=== PATIENT | female | born 2000 | race Hispanic/Latino ===

== ENCOUNTER 2019-11-22 14:59 | Emergency (ER) | payer OTHER, SELFPAY ==
--- NOTE | ~2019-11-22 | US_ITS ---
EXAMINATION: US pelvic complete w TV DATE: 11/22/2019 16:18 INDICATION: Pelvic pain, nausea and bleeding Comparison:No prior studies for comparison. TECHNIQUE: Multiple transabdominal and endovaginal sonographic images of the pelvis performed. FINDINGS: The uterus measures 6.2 x 3.5 x 4.5 cm. The endometrial complex measures 5 mm. The right ovary measures 4.2 x 2.1 x 2.9 cm and the left ovary measures 4.5 x 1.8 x 1.9 cm. There ar e small follicles in each ovary. There is no free fluid in the pelvis. There are no abnormal masses seen on either side. IMPRESSION: 1. Normal pelvic ultrasound. Reviewed, dictated and finalized at location A.
[2019-11-22 15:13] VITALS: BP 137/73; PULSE 74; RESP 18; TEMP 36.8; O2SAT 100
--- NOTE | 2019-11-22 15:19 | ED.FEMALEGU ---
HPI - Female Genitourinary General Chief complaint: Vaginal Bleeding Stated complaint: tubal ligation/continued bleeding Time Seen by Provider: 11/22/19 15:05 Source: patient and RN notes reviewed Mode of arrival: ambulatory Limitations: no limitations History of Present Illness HPI Narrative: Pt is a 19 y/o female who presents to the ED with c/o constant vaginal bleeding starting roughly 3 weeks ago. She notes that she received a tubal ligation on 08/14/19 following a complication with a previous . Pt states that she has had intermittent lower ABD pain ever since the procedure. She notes that her pain radiates into her low back, and describes her pain as sharp. Pt states that she had a relatively normal period in August, but notes that she didn't have a period throughout the month of September. She states that she began having heavy vaginal bleeding on 10/29/19, and notes that her bleeding has persisted ever since. Pt states that she has been soaking through 1 pad roughly every 2 hours. She also reports intermittent nausea, diarrhea, and dysuria, but denies any syncope, fever, cough, or congestion. Pt states that she sees REQUIREMENTS MANAGER, Dr. Pina, but notes that she hasn't followed up with him since her tubal ligation. MD elicited complaint: vaginal bleeding Pertinent past history: tubal ligation Onset (ago): week(s) (3) Location of symptoms: vaginal Vaginal bleeding: # pads per hour (.5) Urinary symptoms: Dysuria Associated symptoms: abdominal pain (lower ABD pain radiating into low back), nausea and other (diarrhea) Possible : unsure if Related Data Allergies Allergy/AdvReac Type Severity Reaction Status Date / Time No Known Allergies Allergy Verified 11/22/19 15:16 Review of Systems Review of Systems: Narrative: CONSTITUTIONAL: Denies fever, chills, or sweats. ENT: Denies rhinorrhea, congestion, sore throat, or otalgia. RESPIRATORY: Denies cough or dyspnea. GASTROINTESTINAL: Reports lower abdominal pain radiating into low back, nausea, and diarrhea. GENITOURINARY: Reports vaginal bleeding and dysuria. Denies hematuria. NEUROLOGIC: Denies headache, numbness, weakness, or syncope. All systems reviewed & are unremarkable except as noted in HPI and below PMFSH Past Medical History Medical History (Updated 11/22/19 @ 17:49 by Anamaria Bauer MD) Left otitis media Pre-eclampsia UTI (urinary tract infection) Surgical History Surgical History Hx of tubal ligation Social History Social History Smoking status: Never smoker Alcohol intake: never Substance use: never Gender identity (if verbalized by the patient): Female Exam Narrative: Exam Narrative: GENERAL: Well-appearing, well-nourished, and in no acute distress. HEAD: Normocephalic, atraumatic. EYES: PERRLA and EOMI. ENT: Nares clear, no rhinorrhea or epistaxis. Mucous membranes moist. NECK: Supple. CHEST: Clear to auscultation. No respiratory distress. HEART: Regular rate and rhythm. No murmur heard. Normal peripheral pulses. ABDOMEN: Soft, nondistended, normal active bowel sounds. Mild suprapubic tenderness and rt flank tenderness. PELVIC: Labia majora and minora normal without lesions. Vagina with blood present, no brisk bleeding. No cervical motion tenderness. No large blood clots. No adnexal tenderness or fullness bilaterally. No mucoid discharge present. EXTREMITIES: Normal range of motion. No edema. SKIN: Warm, dry, no rash. NEURO: No focal deficits. Alert and oriented. Course Course Emergency Course: Patient presented for evaluation of vaginal bleeding. Had a time of initial assessment, ABCs are intact and vital signs are stable. No tachycardia or hypotension. Patient with scant bleeding present on vaginal exam without brisk bleeding. No evidence of products of conception. Patient is not . Patient with very stable hemoglobin and hematocr
[2019-11-22] MEDS: SODIUM CHLORIDE 0.9% IV 1,000 ML 999 ML IV CONT (15:47)
[2019-11-22] MEDS: ONDANSETRON INJ 4 MG/2 ML VIAL IV PUSH (15:47)
[2019-11-22 15:58] LABS: Basophils Percent Auto 0.4 % (0.2-1.2); Eosinophils Absolute Auto 0.3 K/mm3 (0-0.3); Eosinophils Percent Auto 2.6 % (0-4.4); Hematocrit 43.3 % (37.0-47.0); Hemoglobin 13.6 g/dL (12.0-15.0); Immature Granulocyte Absolute 0.05 K/mm3 (0.00-0.031); Immature Granulocyte Percent A 0.5 % (0-0.5); Lymphocytes Absolute Auto 3.37 K/mm3 (0.9-3.2); Lymphocytes Percent Auto 30.8 % (18.3-44.2); Mean Corpuscular HGB Conc 31.4 g/dl (32-36); Mean Corpuscular Hemoglobin 28.9 pg (26-34); Mean Corpuscular Volume 92.1 fl (80-100); Mean Platelet Volume 10.5 fl (7.4-10.4); Monocytes Absolute Auto 0.8 K/mm3 (0.1-0.6); Monocytes Percent Auto 6.9 % (2.6-8.5); Neutrophils Absolute Auto 6.4 K/mm3 (1.3-6.7); Neutrophils Percent Auto 58.8 % (45.5-73.1); Platelet Count Result 253 k/mm3 (150-375); Red Cell Distribution Width 13.1 % (11.5-14.5)
[2019-11-22 16:02] LABS: Add Urine Microscopic? YES; Appearance Urine Clear (Clear); Bilirubin Urine Negative (Negative); Blood Urine 3+ (Negative); Color Urine Yellow (Yellow); Glucose Urine UA Negative (Negative); Ketones Urine Negative (Negative); Leukocyte Esterase Ur Negative LEU/UL (Negative); Mucus Urine Rare /lpf; Nitrate Urine Negative (Negative); Protein Urine Negative (Negative); Specific Grav Ur 1.017 (1.001-1.035); Squamous Epithelial Cell Urine Occasional /hpf (Few); Urobilinogen Urine Negative mg/dL (<2.0); WBC Urine 0-3 /hpf
[2019-11-22 16:08] LABS: INR 1.1; Prothrombin Time 13.5 Seconds (11.1-14.7)
[2019-11-22 16:09] LABS: Partial Thromboplastin Time 30.1 SECONDS (22.3-36.8)
[2019-11-22 16:10] LABS: Alanine Aminotransferase 16 U/L (4-35); Albumin Level 4.6 g/dL (3.5-5.1); Alkaline Phosphatase 87 U/L (38-126); Aspartate Amino Transferase 21 U/L (14-36); Bilirubin,Total 0.3 mg/dL (0.2-1.3); Blood Urea Nitrogen 12 mg/dL (7-17); Calcium 8.9 mg/dL (8.4-10.2); Carbon Dioxide 27 mmol/L (22-30); Chloride 104 mmol/L (98-107); Estimated CRCL calculation 97 ml/min; Estimated Glomerular Filt Rate > 60; Glucose 75 mg/dL (65-105); Potassium 3.5 mmol/L (3.4-5.0); Sodium 139 mmol/L (137-145)
[2019-11-22 17:05] VITALS: BP 95/54; PULSE 63; RESP 14; O2SAT 100
[2019-11-22 17:57] VITALS: BP 105/53; PULSE 54; RESP 16; O2SAT 100
== END 2019-11-22 17:58 | disposition home or self-care (01) ==
PROVIDERS: Emergency Provider Emergency Medicine
DX: N92.1 Excessive and frequent menstruation with irregular cycle (principal); Z87.440 Personal history of urinary (tract) infections
CPT/HCPCS: 36415; 76830; 76856; 80053; 81001; 81025; 85025; 85610; 85730; 86900; 86901; 87070; 87491; 87591; 87808; 96365; 96375; 99284; J0131; J2405; J7030

== ENCOUNTER 2021-03-31 08:23 | Emergency (ER) | payer OTHER, SELFPAY ==
[2021-03-31 08:34] VITALS: BP 105/64; PULSE 55; RESP 16; TEMP 36.3; O2SAT 100
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
== END 2021-03-31 09:12 | disposition home or self-care (01) ==
PROVIDERS: Emergency Provider Nurse Practitioner
DX: L24.7 Irritant contact dermatitis due to plants, except food (principal)
CPT/HCPCS: 99213; G0463

== ENCOUNTER 2021-05-03 15:59 | Emergency (ER) | payer OTHER, SELFPAY ==
--- NOTE | 2021-05-03 16:07 | ED.URI ---
HPI - URI/Sore Throat General Chief Complaint: Upper Respiratory Infection Stated Complaint: Sore Throat,Left Ankle Pain Time Seen by Provider: 05/03/21 16:25 Source: patient and RN notes reviewed Mode of arrival: ambulatory Limitations: no limitations History of Present Illness HPI Narrative: 20-year-old female presents with concern for sore throat. Reports sore throat started 1 week ago. She reports rhinorrhea, nasal congestion. Denies headache, body aches, chills, sweats. Reports occasional cough. Reports she has been trying to get tonsil stones out. She denies intervention. Reports she has not been vaccinated for Covid. MD elicited complaint: sore throat Related Data Allergies Allergy/AdvReac Type Severity Reaction Status Date / Time No Known Allergies Allergy Verified 05/03/21 16:18 Review of Systems Review of Systems: CONSTITUTIONAL: Denies malaise, chills, sweats, or fever. EYES: Denies visual changes, redness, or discharge. ENT: Reports rhinorrhea, congestion, sore throat. Denies sinus pain, otalgia CARDIOVASCULAR: Denies chest pain, palpitations, or edema. RESPIRATORY: Reports occasional cough. Denies dyspnea. GASTROINTESTINAL: Denies abdominal pain, nausea, vomiting, diarrhea, bloody, or mucous stools. GENITOURINARY: Denies dysuria or hematuria. SKIN: Denies rash or itching. MUSCULOSKELETAL: Denies back pain, joint pain, or myalgia. NEUROLOGIC: Denies numbness, weakness, or headache. PSYCHIATRIC: Denies anxiety or depression. All systems reviewed & are unremarkable except as noted in HPI and below PMFSH Past Medical History Medical History Left otitis media Pre-eclampsia UTI (urinary tract infection) Surgical History Surgical History Hx of tubal ligation Social History Social History Smoking status: Never smoker Alcohol intake: never Substance use: never Gender identity (if verbalized by the patient): Female Comments At time of signature, agree with nursing past medical, surgical, social and family history. There is no relevant family history pertinent to the presenting complaint Exam Narrative: GENERAL: Well-appearing, well-nourished, and in no acute distress. HEAD: Normocephalic, atraumatic. EYES: PERRLA, conjunctivae clear, and EOMI. No nystagmus. ENT: Nares clear. Mucous membranes moist. TM pearly briones with sharp light reflex bilaterally; no tragal tenderness. Oropharynx without erythema or lesions. Tonsils mildly enlarged and without exudate -2 erythematous lesions noted on the tonsils. NECK: Supple. No lymphadenopathy. CHEST: No respiratory distress. Clear to auscultation. No bony deformities, no asymmetry. Speaks in full sentences. HEART: Regular rate and rhythm. No murmur heard. SKIN: Warm, dry, no visible rash. NEURO: Alert and oriented x3. PSYCH: Normal mood and affect Course Course Emergency Course: Patient is aware of diagnosis, understands and agrees to treatment plan. Anticipatory guidance given. Patient agrees to follow-up as directed and is aware of reasons to seek care at the emergency department. Portions of this record may have been created with voice recognition software Vital Signs Vital signs: Reviewed. MDM - URI/Sore Throat MDM Narrative Medical decision making narrative: Differential diagnosis considered: Caballero virus, strep pharyngitis, allergic rhinitis, upper respiratory tract infection, sinusitis, rhinosinusitis, nasopharyngitis. viral pharyngitis, otitis media, otitis externa, pneumonia, bronchitis, viral cough syndrome, viral syndrome, and influenza. Exam findings show no acute concerns or changes; patient is non-toxic appearing and is in no distress. Patient is appropriate for outpatient treatment and follow-up. Lab Data Attestation: I reviewed the patient's lab results. Alyssia
[2021-05-03 16:10] VITALS: BP 99/63; PULSE 64; RESP 16; TEMP 36.3; O2SAT 100
[2021-05-03 16:59] LABS: SARS-CoV-2 RNA PCR Negative
== END 2021-05-03 16:50 | disposition home or self-care (01) ==
PROVIDERS: Emergency Provider Nurse Practitioner
DX: J02.9 Acute pharyngitis, unspecified (principal); Z20.822 Contact with and (suspected) exposure to COVID-19
CPT/HCPCS: 87081; 87880; 99213; C9803; G0463; U0003; U0005

== ENCOUNTER 2021-07-27 10:06 | Emergency (ER) | payer OTHER, SELFPAY ==
[2021-07-27 10:19] VITALS: BP 100/65; PULSE 67; RESP 16; TEMP 36.8; O2SAT 100
--- NOTE | 2021-07-27 10:48 | ED.FEMALEGU ---
HPI - Female Genitourinary General Chief complaint: Urogenital-Female Stated complaint: uti/yeast Source: patient Mode of arrival: ambulatory Limitations: no limitations History of Present Illness HPI Narrative: Karly Parsons is a 21 yo with no PMH who comes with complaints of UTI symptoms of dysuria and white vaginal discharge for the past few days Related Data Allergies Allergy/AdvReac Type Severity Reaction Status Date / Time No Known Allergies Allergy Verified 07/27/21 10:23 Review of Systems Review of Systems: CONSTITUTIONAL: Denies fever, chills, sweats. EYES: Denies visual changes, redness, discharge. ENT: Denies rhinorrhea, congestion, sore throat, otalgia. CARDIOVASCULAR: Denies chest pain, palpitations, edema. RESPIRATORY: Denies dyspnea, wheezing, cough GASTROINTESTINAL: Denies abdominal pain, nausea, vomiting, diarrhea. GENITOURINARY: Denies dysuria, hematuria, white abnormal discharge SKIN: Denies rash or itching. NEUROLOGIC: Denies numbness, or focal weakness. PSYCHIATRIC: Denies anxiety or depression. [facility] Past Medical History Medical History Left otitis media Pre-eclampsia UTI (urinary tract infection) Surgical History Surgical History Hx of tubal ligation Social History Social History Smoking status: Never smoker Alcohol intake: never Substance use: never Gender identity (if verbalized by the patient): Female Comments At time of signature, I agree with nursing past medical, surgical, social and family history. There is no relevant family history pertinent to the presenting complaint. Exam Narrative: GENERAL: This is a well-nourished, well-developed patient, in mild distress. HEAD: normocephalic, atraumatic. EYES: Sclera clear/white. Vision is grossly intact. EARS: External ears normal. Hearing grossly intact. NOSE: External nose normal without nasal discharge, nares without redness, no rhinorrhea. THROAT: Mucous membranes moist, NECK: Neck supple, CARDIOVASCULAR: Regular rate and rhythm without murmurs, gallops, or rubs. RESPIRATORY: Clear to auscultation. Breath sounds equal bilaterally. No wheezes, rales, or rhonchi. GASTROINTESTINAL: Abdomen soft, SKIN: warm, intact with no suspicious lesions or rash, good texture and turgor. NEURO: awake, alert, and oriented to person, place and time. There were no obvious focal neurologic abnormalities. Steady gait EXTREMITIES: Normal range of motion. BACK: Nontender without deformity Course Course Emergency Course: Patient here for check of UA and has yeast infection UA is negative test is negative Started on Diflucan Vital Signs Vital signs: Vital Signs Temperature 98.3 F 07/27/21 10:19 Pulse Rate 67 07/27/21 10:19 Respiratory Rate 16 07/27/21 10:19 Blood Pressure 100/65 07/27/21 10:19 Pulse Oximetry 100 07/27/21 10:19 Temperature 98.3 F 07/27/21 10:19 Pulse Rate 67 07/27/21 10:19 Respiratory Rate 16 07/27/21 10:19 Blood Pressure 100/65 07/27/21 10:19 Pulse Oximetry 100 07/27/21 10:19 MDM - Female Genitourinary Differential Diagnosis Differential diagnosis: Likely urinary tract infection, bacterial vaginosis, vaginitis, cystitis and other Lab Data Labs: UCG Bedside Result Negative Reference Range: Negative Urine Glucose Negative Reference Range: Negative Urine Bilirubin Negative Reference Range: Negative Urine Ketone Negative Reference Range: Negative Urine Specific [place] 1.025 Reference Range:1.
== END 2021-07-27 11:12 | disposition home or self-care (01) ==
PROVIDERS: Emergency Provider Nurse Practitioner
DX: B37.3 Candidiasis of vulva and vagina (principal)
CPT/HCPCS: 81003; 81025; 87086; 99213; G0463

== ENCOUNTER 2021-09-09 10:33 | Emergency (ER) | payer OTHER, SELFPAY ==
--- NOTE | ~2021-09-09 | XR_ITS ---
EXAMINATION: XR knee RT min 4V EXAM DATE: 09/09/2021 11:15 INDICATION: Right lateral upper fibula pain s/p injury 7 days ago. Persistent pain. TECHNIQUE: Right knee frontal, crosstable lateral, orthogonal oblique projections for interpretation . There is no prior study for comparison. FINDINGS: No evidence osteochondral defect or joint body in the right knee joint. There are no acut e right knee, proximal fibular fractures or dislocations identified. There is no subcutaneous gas. The soft tissue is unremarkable. There are no radiopaque foreign bodies. IMPRESSION: 1. XR knee RT min 4V exam without acute osseous findings. Reviewed, dictated and finalized at location A. [facility]
[2021-09-09 10:48] VITALS: BP 102/67; PULSE 69; RESP 16; TEMP 37.1; O2SAT 99
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
== END 2021-09-09 11:50 | disposition home or self-care (01) ==
PROVIDERS: Emergency Provider Nurse Practitioner
DX: S80.01XA Contusion of right knee, initial encounter (principal); W22.8XXA Striking against or struck by other objects, initial encounter; Y99.0 Civilian activity done for income or pay
CPT/HCPCS: 73564; 99213; G0463

== ENCOUNTER 2022-05-12 09:53 | Emergency (ER) | payer OTHER, SELFPAY ==
[2022-05-12 10:04] VITALS: BP 113/68; PULSE 65; RESP 16; TEMP 36.8; O2SAT 100
--- NOTE | 2022-05-12 10:04 | ED.FEMALEGU ---
HPI - Female Genitourinary General Chief complaint: Urogenital-Female Stated complaint: Vaginal Problems Time Seen by Provider: 05/12/22 10:04 History of Present Illness HPI Narrative: Viktoriya Parsons is a 21 yo female with no PMH who comes to express care with vaginal discharge and pain in the vaginal area that started about 2 weeks ago after her last sexual contact with her regular partner. She is also taking amoxicillin for wisdom tooth removal. She states she has not had a lot of problems urinating but that the discharge been constant and she is try to treat with [id number] medication which has been unsuccessful Has had single sexual partner in the last few months, does not think it is an STD but wants to be checked anyway, she denies abdominal pain or fever Related Data Home Medications Medication Instructions Recorded Confirmed amoxicillin 500 mg capsule 500 mg PO DIRECTED 05/12/22 05/12/22 Allergies Allergy/AdvReac Type Severity Reaction Status Date / Time No Known Allergies Allergy Verified 05/12/22 09:59 Review of Systems Review of Systems: CONSTITUTIONAL: Denies fever, chills, sweats. EYES: Denies visual changes, redness, discharge. ENT: Denies rhinorrhea, congestion, sore throat, otalgia. CARDIOVASCULAR: Denies chest pain, palpitations, edema. RESPIRATORY: Denies dyspnea, wheezing, cough GASTROINTESTINAL: Denies abdominal pain, nausea, vomiting, diarrhea. GENITOURINARY: Denies dysuria, hematuria, has abnormal discharge SKIN: Denies rash or itching. NEUROLOGIC: Denies numbness, or focal weakness. PSYCHIATRIC: Denies anxiety or depression. PMFSH Past Medical History Medical History Left otitis media Pre-eclampsia UTI (urinary tract infection) Surgical History Surgical History Hx of tubal ligation Social History Social History Smoking status: Never smoker Alcohol intake: never Substance use: never Gender identity (if verbalized by the patient): Female Comments At time of signature, I agree with nursing past medical, surgical, social and family history. There is no relevant family history pertinent to the presenting complaint. Exam Narrative: GENERAL: This is a well-nourished, well-developed patient, in mild distress. HEAD: normocephalic, atraumatic. EYES: . Sclera clear/white. Vision is grossly intact. EARS: External ears normal, Hearing grossly intact. NOSE: External nose normal without nasal discharge, nares without redness, no rhinorrhea. THROAT: Mucous membranes moist, NECK: Neck supple, CARDIOVASCULAR: Regular rate and rhythm without murmurs, gallops, or rubs. RESPIRATORY: Clear to auscultation. Breath sounds equal bilaterally. No wheezes, rales, or rhonchi. GASTROINTESTINAL: Abdomen soft, non-tender, : As gross amount of white discharge in vaginal vault with no vesicles or other types of lesions noted she is very tender to touch very erythematous, no CMT, no adnexal tenderness she has hair bumps from shaving on her suprapubic area but there is no tenderness externally SKIN: warm, intact with no suspicious lesions or rash, good texture and turgor. NEURO: awake, alert, and oriented to person, place and time. There were no obvious focal neurologic abnormalities. Steady gait EXTREMITIES: Normal range of motion. BACK: Nontender without deformity Course Course Emergency Course: Patient seen for vaginal discharge of unknown cause she is on amoxicillin also for wisdom tooth Speculum exam done, STD specimens obtained, UA obtained- UA negative We will treat for vaginitis and yeast infection as well as STDs at the request of the patient Level of Care: Express Care Visit Vital Signs Vital signs: Vital Signs Temperature 98.3 F 05/12/22 10:04 Pulse Rate 65 05/12/22 10:04 Respiratory Rate 16 05/12
[2022-05-12 10:12] VITALS: BP 113/68; PULSE 65; RESP 16; TEMP 36.8; O2SAT 100
[2022-05-12] MEDS: cefTRIAXone 500 MG, LIDOCAINE HCL 1% LOCAL INJ 1 ML IM (10:27)
== END 2022-05-12 10:50 | disposition home or self-care (01) ==
PROVIDERS: Emergency Provider Nurse Practitioner; PCP Physician Assistant
DX: B37.3 Candidiasis of vulva and vagina (principal); N76.0 Acute vaginitis; Z20.2 Contact with and (suspected) exposure to infections with a predominantly sexual mode of transmission
CPT/HCPCS: 81003; 87070; 87491; 87591; 87661; 96372; 99214; G0463; J0696

== ENCOUNTER 2022-11-22 11:56 | Emergency (ER) | payer OTHER, SELFPAY ==
[2022-11-22 12:04] VITALS: BP 108/60; PULSE 89; RESP 16; TEMP 37.1; O2SAT 99
--- NOTE | 2022-11-22 12:10 | ED.EAR ---
HPI - Ear Problem General Chief complaint: Ear Stated complaint: left eye pain/right ear pain Time Seen by Provider: 11/22/22 12:37 Source: patient and RN notes reviewed Mode of arrival: ambulatory Limitations: no limitations History of Present Illness HPI Narrative: 22-year-old female presents with multiple complaints. She reports right ear pain, left eye irritation and vaginal itching. She denies urine frequency, urgency, dysuria, discharge. She denies nasal congestion, rhinorrhea, vision changes, drainage from the ear. She denies taking medications symptoms. MD Complaint: ear pain Related Data Allergies Allergy/AdvReac Type Severity Reaction Status Date / Time No Known Allergies Allergy Verified 11/22/22 12:15 Review of Systems Review of Systems: CONSTITUTIONAL: Denies malaise, chills, sweats, or fever. EYES: Denies visual changes, redness, or discharge. Reports left eye irritation ENT: Denies rhinorrhea, congestion, sinus pain, and sore throat. Reports right ear pain CARDIOVASCULAR: Denies chest pain, palpitations, or edema. RESPIRATORY: Denies cough. Denies dyspnea. GASTROINTESTINAL: Denies abdominal pain, nausea, vomiting, diarrhea SKIN: Denies rash or itching. : Reports vaginal itching without discharge MUSCULOSKELETAL: Denies myalgia. NEUROLOGIC: Denies headache. All systems reviewed & are unremarkable except as noted in HPI and below PMFSH Past Medical History Medical History Left otitis media Pre-eclampsia UTI (urinary tract infection) Surgical History Surgical History Hx of tubal ligation Social History Social History Smoking status: Never smoker Alcohol intake: never Substance use: never Gender identity (if verbalized by the patient): Female Comments At time of signature, agree with nursing past medical, surgical, social and family history. There is no relevant family history pertinent to the presenting complaint Exam Narrative: GENERAL: Well-appearing, well-nourished, and in no acute distress. HEAD: Normocephalic EYES: PERRLA, bilateral conjunctivae clear, sclera clear, no drainage noted ENT: Nares clear, turbinates edematous, clear discharge. Mucous membranes moist. Left tM pearly briones with dull light reflex, right TM erythematous; no tragal tenderness. Oropharynx not erythematous without lesions. Tonsils not enlarged and without exudate, no drooling, no hoarseness, no trismus, uvula midline. NECK: Supple. No lymphadenopathy CHEST: Clear to auscultation, breath sounds equal. No wheezing, rhonchi, rales, or stridor. No respiratory distress, speaks in full sentences. HEART: Regular rate and rhythm. No murmur heard. SKIN: Warm, dry, no rash. NEURO: Alert and oriented x3. PSYCH: Normal mood and affect Course Course Emergency Course: Patient is aware of diagnosis, understands and agrees to treatment plan. Anticipatory guidance given. Patient agrees to follow-up as directed and is aware of reasons to seek care at the emergency department. Portions of this record may have been created with voice recognition software Level of Care: Express Care Visit Vital Signs Vital signs: Vital Signs Temperature 98.7 F 11/22/22 12:04 Pulse Rate 89 11/22/22 12:04 Respiratory Rate 16 11/22/22 12:04 Blood Pressure 108/60 11/22/22 12:04 Pulse Oximetry 99 11/22/22 12:04 Oxygen Delivery Room Air 11/22/22 12:04 Temperature 98.7 F 11/22/22 12:04 Pulse Rate 89 11/22/22 12:04 Respiratory Rate 16 11/22/22 12:04 Blood Pressure 108/60 11/22/22 12:04 Pulse Oximetry 99 11/22/22 12:04 Oxygen Delivery Room Air 11/22/22 12:04 Reviewed. Medical Decision Making MDM Narrative Medical decision making narrative: Differential diagnosis considered: Caballero virus, strep pharyngitis, allergic rhinitis, upp
== END 2022-11-22 12:48 | disposition home or self-care (01) ==
PROVIDERS: Emergency Provider Nurse Practitioner
DX: H66.90 Otitis media, unspecified, unspecified ear (principal); L29.8 Other pruritus
CPT/HCPCS: 99213; G0463

== ENCOUNTER 2022-12-13 09:19 | Emergency (ER) | payer OTHER, SELFPAY ==
[2022-12-13 09:57] VITALS: BP 129/71; PULSE 84; RESP 18; TEMP 36.9; O2SAT 100
--- NOTE | 2022-12-13 10:19 | ED.URI ---
HPI - URI/Sore Throat General Chief Complaint: Upper Respiratory Infection Stated Complaint: Sore Throat/Sinus Time Seen by Provider: 12/13/22 10:19 Source: patient and RN notes reviewed Mode of arrival: ambulatory Limitations: no limitations History of Present Illness HPI Narrative: 22-year-old female presents with concern for sore throat, painful swallowing. Reports symptoms started on Wednesday and worsened yesterday. She also reports bilateral ear pain. Reports her has been having similar symptoms that he got better MD elicited complaint: sore throat Related Data Allergies Allergy/AdvReac Type Severity Reaction Status Date / Time No Known Allergies Allergy Verified 12/13/22 09:56 Review of Systems Review of Systems: CONSTITUTIONAL: Reports malaise. Denies chills, sweats, or fever. EYES: Denies visual changes, redness, or discharge. ENT: Denies rhinorrhea, congestion, sinus pain. Reports otalgia and sore throat. CARDIOVASCULAR: Denies chest pain, palpitations, or edema. RESPIRATORY: Denies cough. Denies dyspnea. GASTROINTESTINAL: Denies abdominal pain, nausea, vomiting, diarrhea SKIN: Denies rash or itching. MUSCULOSKELETAL: Denies myalgia. NEUROLOGIC: Denies headache. All systems reviewed & are unremarkable except as noted in HPI and below PMFSH Past Medical History Medical History Left otitis media Pre-eclampsia UTI (urinary tract infection) Surgical History Surgical History Hx of tubal ligation Social History Social History Smoking status: Never smoker Alcohol intake: never Substance use: never Gender identity (if verbalized by the patient): Female Comments At time of signature, agree with nursing past medical, surgical, social and family history. There is no relevant family history pertinent to the presenting complaint Exam Narrative: GENERAL: Nontoxic-appearing and in no acute distress. HEAD: Normocephalic EYES: PERRLA, conjunctivae clear ENT: Nares clear. Mucous membranes moist. TM pearly briones with dull light reflex bilaterally; no tragal tenderness. Oropharynx erythematous without lesions. Tonsils enlarged and with exudate, no drooling, no hoarseness, no trismus, uvula midline. NECK: Supple. No lymphadenopathy CHEST: Clear to auscultation, breath sounds equal. No wheezing, rhonchi, rales, or stridor. No respiratory distress, speaks in full sentences. HEART: Regular rate and rhythm. No murmur heard. SKIN: Warm, dry, no rash. NEURO: Alert and oriented x3. PSYCH: Normal mood and affect Course Course Emergency Course: Patient is aware of diagnosis, understands and agrees to treatment plan. Anticipatory guidance given. Patient agrees to follow-up as directed and is aware of reasons to seek care at the emergency department. Portions of this record may have been created with voice recognition software Level of Care: Express Care Visit Vital Signs Vital signs: Vital Signs Temperature 98.4 F 12/13/22 09:57 Pulse Rate 84 12/13/22 09:57 Respiratory Rate 18 12/13/22 09:57 Blood Pressure 129/71 12/13/22 09:57 Pulse Oximetry 100 12/13/22 09:57 Oxygen Delivery Room Air 12/13/22 09:57 Temperature 98.4 F 12/13/22 09:57 Pulse Rate 84 12/13/22 09:57 Respiratory Rate 18 12/13/22 09:57 Blood Pressure 129/71 12/13/22 09:57 Pulse Oximetry 100 12/13/22 09:57 Oxygen Delivery Room Air 12/13/22 09:57 Reviewed. MDM - URI/Sore Throat MDM Narrative Medical decision making narrative: Differential diagnosis considered: Caballero virus, strep pharyngitis, allergic rhinitis, upper respiratory tract infection, sinusitis, rhinosinusitis, nasopharyngitis. viral pharyngitis, otitis media, otitis externa, pneumonia, bronchitis, viral cough syndrome, viral syndrome, and influenza. Exam findings show
== END 2022-12-13 10:30 | disposition home or self-care (01) ==
PROVIDERS: Emergency Provider Nurse Practitioner
DX: J02.0 Streptococcal pharyngitis (principal)
CPT/HCPCS: 87880; 99213; G0463

== ENCOUNTER 2024-01-17 08:36 | Emergency (ER) | payer OTHER, SELFPAY ==
[2024-01-17 08:49] VITALS: BP 101/78; PULSE 70; RESP 16; TEMP 36.8; O2SAT 100
--- NOTE | 2024-01-17 09:29 | ED.GENADULT ---
HPI - General Adult General Chief complaint: Unspecified Stated complaint: right side rib pain Time Seen by Provider: 01/17/24 09:18 Source: patient and RN notes reviewed Mode of arrival: ambulatory Limitations: no limitations History of Present Illness HPI narrative: Patient presents today with intermittent right upper quadrant abdominal pain that has been worsening since onset. Patient states she believes it is somewhat related to eating. Denies nausea, vomiting, fever. She does report some sporadic diarrhea. Currently rates her pain 6/10. She has tried no [id number] treatment prior to arrival. Related Data Home Medications Medication Instructions Recorded Confirmed No Home Medications 01/17/24 01/17/24 Allergies Allergy/AdvReac Type Severity Reaction Status Date / Time No Known Allergies Allergy Verified 01/17/24 08:42 Review of Systems Review of Systems: CONSTITUTIONAL: Denies body aches, fever, chills, or sweats. EYES: Denies visual changes, redness, or discharge. ENT: Denies rhinorrhea, congestion, sore throat, or otalgia. CARDIOVASCULAR: Denies chest pain, palpitations, or edema. RESPIRATORY: Denies cough or dyspnea. GASTROINTESTINAL: Denies nausea, vomiting.+ abdominal pain, diarrhea GENITOURINARY: Denies dysuria or hematuria. SKIN: Denies rash, itching, or wounds. MUSCULOSKELETAL: Denies back pain, joint pain, or myalgia. NEUROLOGIC: Denies headache, numbness, tingling, or weakness. PSYCH: Denies depression or anxiety. [facility] Past Medical History Medical History Left otitis media Pre-eclampsia UTI (urinary tract infection) Surgical History Surgical History Hx of tubal ligation Social History Social History Smoking status: Never smoker Alcohol intake: never Substance use: never Gender identity (if verbalized by the patient): Female Comments At time of signature, I have reviewed and agree with nursing past medical, surgical, social and family history unless otherwise noted. Please see nursing chart for further information. There is no relevant family history pertinent to the presenting complaint Exam Narrative: GENERAL: Well-appearing, well-nourished, and in mild pain distress. HEAD: Normocephalic, atraumatic. EYES: EOMI. No redness or drainage. Conjunctivae normal. ENT: Mucous membranes pink and moist. NECK: Normal AROM. CHEST: No respiratory distress. Clear to auscultation. HEART: Regular rate and rhythm. No murmur appreciated. Normal peripheral pulses. ABDOMEN: Soft, nondistended, normal active bowel sounds. Tenderness to right upper quadrant with rebound. EXTREMITIES: Normal range of motion. No edema. SKIN: Warm, dry, no rash. Capillary refill normal. Normal skin turgor. NEURO: No focal deficits. Alert and oriented x3. Gait steady. PSYCH: Normal affect. No signs of depression or anxiety. Course Course Level of Care: Express Care Visit Vital Signs Vital signs: Vital Signs Temperature 98.2 F 01/17/24 08:49 Pulse Rate 70 01/17/24 08:49 Respiratory Rate 16 01/17/24 08:49 Blood Pressure 101/78 01/17/24 08:49 Pulse Oximetry 100 01/17/24 08:49 Oxygen Delivery Room Air 01/17/24 08:49 Temperature 98.2 F 01/17/24 08:49 Pulse Rate 70 01/17/24 08:49 Respiratory Rate 16 01/17/24 08:49 Blood Pressure 101/78 01/17/24 08:49 Pulse Oximetry 100 01/17/24 08:49 Oxygen Delivery Room Air 01/17/24 08:49 Reviewed Transfer Transfered to: [facility] Transportation: Other (Private vehicle) Transfer rationale: Abdominal pain Accepting physician: Veronica Medical Decision Making [facility] Narrative Medical decision making narrative: Based on patient's abdominal pain and exam, she will be transferred to [facility] for further evaluation.
== END 2024-01-17 09:30 | disposition short-term general hospital (02) ==
PROVIDERS: Emergency Provider Nurse Practitioner
DX: R10.11 Right upper quadrant pain (principal)
CPT/HCPCS: 99212; G0463

== ENCOUNTER 2024-01-17 10:39 | Emergency (ER) | payer OTHER, SELFPAY ==
--- NOTE | ~2024-01-17 | US_ITS ---
US right upper quadrant DATE: 01/17/2024 13:22 INDICATION: Right upper quadrant abdominal pain for 3 weeks TECHNIQUE: Real time imaging of the liver, pancreas, gallbladder COMPARISON: None FINDINGS: No hepatic or pancreatic space occupying mass lesion is detected. Normal hepatopedal roseann l venous flow. No gallstones or gallbladder wall thickening. The common bile duct measures 2.9 mm, n ormal. IMPRESSION: No significant abnormality Reviewed, dictated and finalized at [facility]. Reviewed, dictated and finalized at [facility]. IMPRESSION: No significant abnormality
[2024-01-17 11:01] VITALS: BP 124/80; PULSE 62; RESP 18; TEMP 36.5; O2SAT 100
[2024-01-17 12:04] LABS: Basophils Absolute Auto 0.1 K/mm3 (0.0-0.1); Basophils Percent Auto 0.4 % (0.2-1.2); Eosinophils Absolute Auto 0.3 K/mm3 (0-0.3); Eosinophils Percent Auto 2.5 % (0-4.4); Hematocrit 47.5 % (37.0-47.0); Hemoglobin 15.1 g/dL (12.0-15.0); Immature Granulocyte Absolute 0.08 K/mm3 (0.00-0.031); Immature Granulocyte Percent A 0.7 % (0-0.5); Lymphocytes Absolute Auto 4.38 K/mm3 (0.9-3.2); Lymphocytes Percent Auto 35.8 % (18.3-44.2); Mean Corpuscular HGB Conc 31.8 g/dl (32-36); Mean Corpuscular Hemoglobin 29.5 pg (26-34); Monocytes Absolute Auto 0.9 K/mm3 (0.1-0.6); Monocytes Percent Auto 6.9 % (2.6-8.5); Neutrophils Absolute Auto 6.6 K/mm3 (1.3-6.7); Neutrophils Percent Auto 53.7 % (45.5-73.1); Platelet Count Result 293 k/mm3 (150-375); Red Blood Count 5.11 M/mm3 (4.2-5.4); Red Cell Distribution Width 12.8 % (11.5-14.5); White Blood Count 12.2 K/mm3 (4.5-10.0)
[2024-01-17 12:15] LABS: Alanine Aminotransferase 21 U/L (6-35); Albumin Level 5.1 g/dL (3.5-5.1); Alkaline Phosphatase 80 U/L (38-126); Anion Gap 9 mmol/L (4-12); Aspartate Amino Transferase 23 U/L (14-36); Bilirubin,Total 0.8 mg/dL (0.2-1.3); Blood Urea Nitrogen 11 mg/dL (7-17); Calcium 9.5 mg/dL (8.4-10.2); Carbon Dioxide 26 mmol/L (22-30); Chloride 105 mmol/L (98-107); Estimated CRCL calculation 124 ml/min; Estimated Glomerular Filt Rate > 60; Glucose 92 mg/dL (65-110); Lipase 36 U/L (23-300); Potassium 3.5 mmol/L (3.4-5.0); Sodium 140 mmol/L (137-145)
[2024-01-17 12:48] LABS: Appearance Urine Clear (Clear); Bacteria Urine None Seen /hpf; Bilirubin Urine Negative (Negative); Blood Urine 2+ (Negative); Color Urine Yellow (Yellow); Glucose Urine UA Negative (Negative); Ketones Urine Negative (Negative); Leukocyte Esterase Ur Negative LEU/UL (Negative); Nitrate Urine Negative (Negative); Non Pathogenic Casts 0-2; Protein Urine Negative (Negative); Specific Grav Ur 1.026 (1.001-1.035); Squamous Epithelial Cell Urine None Seen /hpf (Few); Urobilinogen Urine 0.2 mg/dL (<2.0); WBC Urine 0-5 /hpf (0-3); pH Urine 5.5 (5.0-9.0)
[2024-01-17 13:04] LABS: Add Urine Microscopic? YES
--- NOTE | 2024-01-17 14:27 | ED.ABDPAIN ---
HPI - Abdominal Pain General Chief Complaint: Abdominal Pain Stated Complaint: abdominal pain Time Seen by Provider: 01/17/24 12:00 Source: patient Mode of arrival: ambulatory Limitations: no limitations History of Present Illness HPI narrative: 23-year-old otherwise healthy here with complaints of right upper quadrant pain on and off for last several months. patient denies any nausea, vomiting no fever or chills. she states certain food bothers and causes of her to have more pain. MD elicited complaint: abdominal pain Pertinent past history: none Onset (ago): week(s) (3) Pain Consistency: intermittent Location: RUQ Severity: moderate Quality: aching Radiation: RUQ Migration to: no migration Exacerbating factors: eating Relieving factors: nothing Associated symptoms: denies other symptoms Related Data Patient : No Home Medications Medication Instructions Recorded Confirmed No Home Medications 01/17/24 01/17/24 Allergies Allergy/AdvReac Type Severity Reaction Status Date / Time No Known Allergies Allergy Verified 01/17/24 12:03 Review of Systems Review of Systems: All systems reviewed & are unremarkable except as noted in HPI and below Constitutional: Constitutional: Reports no additional constitutional complaints Eyes: Eyes: Reports no additional eye complaints ENT: Reports system reviewed and no additional complaints, except as documented Cardiovascular: Cardiovascular: Reports no additional cardiovascular complaints Respiratory: Respiratory: Reports no additional respiratory complaints Gastrointestinal: Gastrointestinal: Reports as per HPI Musculoskeletal: Musculoskeletal: Reports no additional musculoskeletal complaints Integumentary/Breasts: Skin/Breast: Reports system reviewed and no additional complaints, except as docu Neurologic: Reports system reviewed and no additional complaints, except as documented Psychiatric: Psychiatric: Reports no additional psychiatric complaints PMFSH Past Medical History Medical History Left otitis media Pre-eclampsia UTI (urinary tract infection) Surgical History Surgical History Hx of tubal ligation Social History Social History Smoking status: Never smoker Alcohol intake: never Substance use: never Gender identity (if verbalized by the patient): Female Exam Narrative: GENERAL: Well-appearing, well-nourished, and in no acute distress. HEAD: Normocephalic, atraumatic. EYES: PERRLA and EOMI. ENT: Nares clear, no rhinorrhea or epistaxis. Mucous membranes moist. NECK: Supple. CHEST: Clear to auscultation. No respiratory distress. HEART: Regular rate and rhythm. No murmur heard. Normal peripheral pulses. ABDOMEN: Soft, nontender, nondistended, normal active bowel sounds. EXTREMITIES: Normal range of motion. No edema. SKIN: Warm, dry, no rash. NEURO: No focal deficits. Alert and oriented x3. PSYCH: Normal mood and affect. Course Course Emergency Course: Patient comfortably resting her pain is almost 0 at this time. I did inform her about the lab work, ultrasound findings. Recommended her to stay away from fatty for Na products for few weeks. , follow-up with her primary doctor Vital Signs Vital signs: Vital Signs Temperature 36.5 C 01/17/24 11:01 Pulse Rate 62 01/17/24 11:01 Respiratory Rate 18 01/17/24 11:01 Blood Pressure 124/80 01/17/24 11:01 Pulse Oximetry 100 01/17/24 11:01 Oxygen Delivery Room Air 01/17/24 11:01 Temperature 36.5 C 01/17/24 11:01 Pulse Rate 62 01/17/24 11:01 Respiratory Rate 18 01/17/24 11:01 Blood Pressure 124/80 01/17/24 11:01 Pulse Oximetry 100 01/17/24 11:01 Oxygen Delivery Room Air 01/17/24 11:01 MDM - Abdominal Pain Differential Diagnosis Differential diagnosis: Likely
[2024-01-17 14:45] VITALS: BP 119/78; PULSE 60; RESP 16; O2SAT 100
== END 2024-01-17 14:45 | disposition home or self-care (01) ==
PROVIDERS: Emergency Medicine; Emergency Provider Family Medicine
DX: K80.50 Calculus of bile duct without cholangitis or cholecystitis without obstruction (principal); Z87.442 Personal history of urinary calculi
CPT/HCPCS: 36415; 76705; 80053; 81001; 81025; 83690; 85025; 99284

== ENCOUNTER 2024-10-17 15:56 | Emergency (ER) | payer OTHER, SELFPAY ==
[2024-10-17 16:12] VITALS: BP 121/83; PULSE 86; RESP 20; TEMP 37.1; O2SAT 100
--- NOTE | 2024-10-17 16:15 | ED.EAR ---
HPI - Ear Problem General Chief complaint: Ear Stated complaint: Both Ears Irritation Time Seen by Provider: 10/17/24 16:15 Source: patient, RN notes reviewed and old records reviewed Mode of arrival: ambulatory Limitations: no limitations History of Present Illness HPI Narrative: Patient presents with complaints of bilateral ear irritation and right ear pain. She reports that symptoms began today. She has had a slight runny nose and cough today as well. She is here with her child who is also sick. She denies any injury or trauma. She voices no other concerns or complaints today. Related Data Allergies Allergy/AdvReac Type Severity Reaction Status Date / Time No Known Allergies Allergy Verified 10/17/24 16:34 Review of Systems Review of Systems: All systems reviewed & are unremarkable except as noted in HPI and below Constitutional: Constitutional: Reports no additional constitutional complaints ENT: Reports system reviewed and no additional complaints, except as documented, Reports otalgia and Reports nasal discharge Cardiovascular: Cardiovascular: Reports no additional cardiovascular complaints Respiratory: Respiratory: Reports no additional respiratory complaints and Reports cough Gastrointestinal: Gastrointestinal: Reports no additional gastrointestinal complaints ON LICENSE OF [facility] Past Medical History Medical History Left otitis media Pre-eclampsia UTI (urinary tract infection) Surgical History Surgical History Hx of tubal ligation Social History Social History Smoking status: Never smoker Alcohol intake: never Substance use: never Gender identity (if verbalized by the patient): Female Comments At the time of my signature, I reviewed and agree with the nursing past medical, surgical, social, and family history. There is no relevant family history pertinent to the patient complaint. Exam Const: General: cooperative, no acute distress, alert and awake Orientation/consciousness: oriented to person, oriented to place and oriented to time HENMT: Head: normal to inspection Ears: TM abnormal dull on the left, erythematous on the right and with loss of landmarks bilateral Resp: Effort & Inspection: normal respiratory effort and able to speak in complete sentences Auscultation: clear to auscultation bilaterally, no crackles, no rales, no rhonchi and no wheezes Cardio: Palpation: normal PMI Rate: regular rate Rhythm: regular rhythm Heart sounds: S1 normal heart sound present and S2 normal heart sound present Neuro: General: oriented to person, oriented to place and oriented to time Cranial nerves: Yes CN's II-XII intact bilaterally Psych: Appearance: grossly normal Thought process: Normal thought process present Insight: Good insight present (Psych) Judgement: Good judgement present (Psych) Course Course Level of Care: Express Care Visit Vital Signs Vital signs: Reviewed Medical Decision Making MDM Narrative Medical decision making narrative: History and exam consistent with otitis media. Patient nontoxic appearing, stable for discharge home on p.o. antibiotic therapy Discharge instructions reviewed with patient, as well as provided in writing per nursing staff. The instructions also include specific and strict return/GO TO THE ER as well as f/u information. All questions have been answered, and the patient deny any further questions with discharge and discharge plan. Some parts of this dictation were generated by voice recognition software and may contain typographical and/or grammatical inaccuracies. Vital Signs Vital Signs: reviewed Lab Data Lab results reviewed: Yes I reviewed the patient's lab results. Lab results narrative: reviewed Discharge Plan Discharge Clinical Impression: Otitis media Qualifiers: Otitis media type: suppurative Chronicity: acute Laterality: right Recurrence: not specified as recurrent Spontaneous tympanic membrane rupture: without spontaneous rupture Qualified Code(s): H66.001 - Acute suppurative otitis media without spontaneous rupture of ear drum, right ear Patient Disposition: Home, Self-Care Condition: Stable Instructions: Antibiotic Form, Ear Infection in Children (ED) Patient Language: Romanian Prescriptions: New amoxicillin 875 mg tablet 875 mg PO Q12H Qty: 20 0RF Follow-up/Referrals: Bebeto,SJ Lynn [Primary Care Provider] - 2 Weeks Stand Alone Forms: Work/School Release IP Time of Disposition: 16:37
== END 2024-10-17 16:47 | disposition home or self-care (01) ==
PROVIDERS: Emergency Provider Nurse Practitioner Family; PCP Physician Assistant
DX: H66.001 Acute suppurative otitis media without spontaneous rupture of ear drum, right ear (principal)
CPT/HCPCS: 99213; G0463

== ENCOUNTER 2025-01-18 08:23 | Emergency (ER) | payer OTHER, SELFPAY ==
--- NOTE | 2025-01-18 08:26 | ED.FEMALEGU ---
HPI - Female Genitourinary General Chief complaint: Vaginal Bleeding Stated complaint: Vaginal Bleeding Time Seen by Provider: 01/18/25 08:32 Source: patient, RN notes reviewed and old records reviewed Mode of arrival: ambulatory Limitations: no limitations History of Present Illness HPI Narrative: 24-year-old female presents to the [facility] with 1 month history of vaginal bleeding. Patient reports that since 17 of December she has had vaginal bleeding. Tried contacting her primary care provider and her appointments canceled, changed to 1 month from now. Patient reports that she did have a ?normal. ? early November and then started bleeding on the 17 of December, has been bleeding daily since. Patient denies , reports tubal ligation July 2019 Patient reports intermittent generalized weakness, intermittent dizziness, intermittent nausea, intermittent headaches x 2 days. Related Data Allergies Allergy/AdvReac Type Severity Reaction Status Date / Time No Known Allergies Allergy Verified 01/18/25 08:36 Review of Systems Review of Systems: All systems reviewed & are unremarkable except as noted in HPI and below Constitutional: Constitutional: Reports as per HPI, Reports fatigue, Reports headache(s) and Reports malaise ENT: Reports system reviewed and no additional complaints, except as documented Cardiovascular: Cardiovascular: Reports no additional cardiovascular complaints, Denies chest pain and Denies dyspnea Respiratory: Respiratory: Reports no additional respiratory complaints, Denies chest congestion, Denies cough and Denies dyspnea Genitourinary: Genitourinary: Reports as per HPI and Reports abnormal vaginal bleeding Musculoskeletal: Musculoskeletal: Reports no additional musculoskeletal complaints Integumentary/Breasts: Skin/Breast: Reports system reviewed and no additional complaints, except as docu PMFSH Past Medical History Medical History UTI (urinary tract infection) Pre-eclampsia Left otitis media Surgical History Surgical History Hx of tubal ligation Social History Social History Smoking status: Never smoker Alcohol intake: never Substance use: never Gender identity (if verbalized by the patient): Female Comments At the time of my signature, I reviewed and agree with the nursing past medical, surgical, social, and family history. There is no relevant family history pertinent to the patient complaint. Exam Const: General: cooperative, healthy appearing, comfortable, no acute distress, well developed, alert and well nourished Nutritional Appearance: well nourished Orientation/consciousness: patient oriented x3 Limitations: no limitations HENMT: Head: normal to inspection Eyes: General: appearance normal, both eyes and all related structures Alignment and Position: alignment normal Neck: Neck: normal visual inspection, full ROM, no lymphadenopathy and no meningeal signs Chest: Chest palpation & inspection: normal inspection of the chest Resp: Effort & Inspection: normal respiratory effort and able to speak in complete sentences Cardio: Rate: regular rate GI: GI Palp: Yes abdominal tenderness (suprapubic) : General: Yes no CVA tenderness Skin: General skin exam: normal color and no rashes or lesions noted Neuro: General: patient oriented x3, gait normal, moves all extremities and no meningeal signs Cognition (Neuro): normal cognition Speech: normal speech Gait exam (Neuro): Normal gait present Extrem: General: normal to inspection, full ROM, capillary refill normal and normal gait Psych: Appearance: grossly normal and well kempt Mental Status: mental status grossly normal Speech and movement: Normal speech and movement present and Clear speech present Affect: normal affect Attitude: cooperative Course Course Level of Care: Express Care Visit Vital Signs Vital signs: Vital Signs Temperature 98.3 F 01/18/25 08:31 Pulse Rate 54 L 01/18/25 08:31 Respiratory Rate 20 01/18/25 08:31 Blood Pressure 121/76 01/18/25 08:31 Pulse Oximetry 100 01/18/25 08:31 Oxygen Delivery Room Air 01/18/25 08:31 Temperature 98.3 F 01/18/25 08:31 Pulse Rate 54 L 01/18/25 08:31 Respiratory Rate 20 01/18/25 08:31 Blood Pressure 121/76 01/18/25 08:31 Pulse Oximetry 100 01/18/25 08:31 Oxygen Delivery Room Air 01/18/25 08:31 Reviewed Transfer Transfered to: [facility]: Other (POV) Transfer rationale: Patient requesting transfer because of 1 month of vaginal bleeding. Accepting physician: Spoke with Dr. Vora MDM - Female Genitourinary MDM Narrative Medical decision making narrative: Patient presents with vaginal bleeding x1 month. States that her primary canceled her appointment came to the urgent care. Patient with a history of tubal ligation Patient requesting transfer to the ER because we are not able to do a complete workup. Not able to do blood work. Offered urine dip and preg test which patient did decline Transfer instructions reviewed with patient go directly to the ER. Do not eat or drink until clear by ER provider All questions have been answered, and the patient deny any further questions Some parts of this dictation were generated by voice recognition software and may contain typographical and/or grammatical inaccuracies. Differential Diagnosis Differential diagnosis: Likely urinary tract infection, bacterial vaginosis, trichomoniasis and dysmenorrhea Critical Care Time Critical Care Time Critical Care Time: No Discharge Plan Discharge Clinical Impression: Vaginal bleeding Patient Disposition: Acute Care Hospital Condition: Stable Patient Language: Mongolian Follow-up/Referrals: Bebeto,SJ Lynn [Primary Care Provider] -
[2025-01-18 08:31] VITALS: BP 121/76; PULSE 54; RESP 20; TEMP 36.8; O2SAT 100
== END 2025-01-18 08:45 | disposition short-term general hospital (02) ==
PROVIDERS: Emergency Provider Nurse Practitioner; PCP Physician Assistant
DX: N93.9 Abnormal uterine and vaginal bleeding, unspecified (principal)
CPT/HCPCS: 99212; G0463

== ENCOUNTER 2025-01-18 09:04 | Emergency (ER) | payer OTHER, SELFPAY ==
[2025-01-18 09:09] VITALS: BP 128/83; PULSE 65; RESP 18; TEMP 36.2; O2SAT 99
--- OUTSIDE RECORDS SUMMARY | 2025-01-18 09:10 | XMS_ITS | Data Portability ---
Author Organization [facility] Elda Delaney Address [address] [place] [address] Care Team Providers Care Telecommunications Clerk Name Role Phone SHAKIRA WEBB Bit Gatherer CRYSTAL GONZALEZ Primary Care Provider Assessment No assessment recorded. Plan of Treatment Reminders Order Date Submit Date Provider Last Modified By Organization Details Last Modified Time Details Appointments ANY 15 2024 01:30P SJ LIRIANO Not available Not available Not available Lab CMP, serum or plasma 2021 TONG [facility], [address], [place], [address], 05/07/2022 08:24:33 CBC w/ auto diff 2021 [facility], [address], [place], [address], 05/07/2022 08:24:32 bilirubin , total + direct, serum or plasma 2021 T[facility], [address], [place], [address], 05/07/2022 08:24:34 hepatitis panel (A+B+C), acute, serum 2021 TONG [facility], [address], [place], [address], 05/07/2022 08:24:32 gamma-glu tamyl transfera se (ggt), serum 2021 022 [facility], [address] [address], [place], [address], 05/07/2022 08:24:34 Referral otolaryng ologist referral 2022 023 [facility], [address], [place], [address], 08/24/2023 12:10:38 Procedures home sleep testing (PROC) 2023 024 [email or web address] [facility] ([facility]), [address] [place], [address], 11/12/2023 12:55:38 Surgeries None recorded. Imaging None recorded. Medication Orders cetirizin e 10 mg tablet [email or web address] [facility], [address] [place], [address], 12/31/2022 10:02:13 amoxicill in 500 mg capsule 2021 022 [facility], [address] [place], [address], 07/01/2022 11:18:11 Patient TargetsNo targets recorded. 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 Referring Physician: Crystal Gonzalez, [place], Encounter Date: 02/03/2023 Results Created Date Observation Date Name Description Value Unit Range Abnormal Flag Note LastModifiedBy Organization Detail LastModifiedTime 05/06/2005/07/2022 ACUTE HEPAT ITIS hep A Ab, IgM Negati ve negati ve Not Available [facility] ([facility]) [address] [facility], [place], [address], 05/07/2022 08:24:31 05/06/20 22 05/07/2022 ACUTE HEPAT ITIS HBsAg screen Negati ve negati ve Not Available [facility] ([facility]) [address] [facility], [place], [address], 05/07/2022 08:24:31 05/06/20 22 05/07/2022 ACUTE HEPAT ITIS hep B core Ab, IgM Negati ve negati ve Not Available [facility] ([facility]) [address] [facility], [place], [address], 05/07/2022 08:24:31 05/06/20 22 05/07/2022 ACUTE HEPAT ITIS HCV Ab <0.1 s/co_ ratio 0.0-0. 9 Not Available [facility] ([facility]) [address] [facility], [place], [address], 05/07/2022 08:24:31 05/06/20 22 05/07/2022 ACUTE HEPAT ITIS interpretati on: Commen t Negat ruy Not infec francisco with HCV, unles s recen t infec tion is suspe cted or other evide nce exist s to indic ate HCV infec tion. Not Available [facility] ([facility]) [address] [facility], [place], [address], 05/07/2022 08:24:31 05/06/20 22 05/07/2022 CBC WITH DIFFE RENTI AL/PL ATELE T WBC 10.1 x10e3 /uL 3.4-10 .8 Not Available [facility] ([facility]) [address] [facility], [place], [address], 05/07/2022 08:24:32 05/06/20 22 05/07/2022 CBC WITH DIFFE RENTI AL/PL ATELE T RBC 4.93 x10e6 /uL 3.77-5 .28 Not Available [facility] ([facility]) [address] [place], [address], 05/07/2022 08:24:32 05/06/20 22 05/07/2022 CBC WITH DIFFE RENTI AL/PL ATELE T hemoglobin 13.3 g/dL 11.1-1 5.9 Not Available [facility] ([facility]) [address] [place], [address], 05/07/2022 08:24:32 05/06/2005/07/2022 CBC WITH DIFFE RENTI AL/PL ATELE T hematocrit 41.7 % 34.0-4 6.6 Not Available [facility] ([facility]) [address] [place], [address], 05/07/2022 08:24:32 05/06/2005/07/2022 CBC WITH DIFFE RENTI AL/PL ATELE T MCV 85 fL 79-97 Not Available [facility] ([facility]) [address] [place], [address], 05/07/2022 08:24:32 05/06/20 22 05/07/2022 CBC WITH DIFFE RENTI AL/PL ATELE T MCH 27.0 pg 26.6-3 3.0 Not Available [facility] ([facility]) [address] [place], [address], 05/07/2022 08:24:32 05/06/20 22 05/07/2022 CBC WITH DIFFE RENTI AL/PL ATELE T MCHC 31.9 g/dL 31.5-3 5.7 Not Available [facility] ([facility]) [address] [place], [address], 05/07/2022 08:24:32 05/06/20 22 05/07/2022 CBC WITH DIFFE RENTI AL/PL ATELE T RDW 13.5 % 11.7-1 5.4 Not Available [facility] ([facility]) [address] [facility], [place], [address], 05/07/2022 08:24:32 05/06/20 22 05/07/2022 CBC WITH DIFFE RENTI AL/PL ATELE T platelets 284 x10e3 /uL 150-45 0 Not Available [facility] ([facility]) [address] [facility], [place], [address], 05/07/2022 08:24:32 05/06/20 22 05/07/2022 CBC WITH DIFFE RENTI AL/PL ATELE T neutrophils 58 % not estab. Not Available [facility] ([facility]) [address] [facility], [place], [address], 05/07/2022 08:24:32 05/06/20 22 05/07/2022 CBC WITH DIFFE RENTI AL/PL ATELE T lymphs 26 % not estab. Not Available [facility] ([facility]) [address] [facility], [place], [address], 05/07/2022 08:24:32 05/06/20 22 05/07/2022 CBC WITH DIFFE RENTI AL/PL ATELE T monocytes 11 % not estab. Not Available [facility] ([facility]) [address] [facility], [place], [address], 05/07/2022 08:24:32 05/06/20 22 05/07/2022 CBC WITH DIFFE RENTI AL/PL ATELE T eos 3 % not estab. Not Available [facility] ([facility]) [address] [facility], [place], [address], 05/07/2022 08:24:32 05/06/20 22 05/07/2022 CBC WITH DIFFE RENTI AL/PL ATELE T basos 1 % not estab. Not Available [facility] ([facility]) [address] [facility], [place], [address], 05/07/2022 08:24:32 05/06/20 22 05/07/2022 CBC WITH DIFFE RENTI AL/PL ATELE T immature cells TELECOMMUNICATOR Not Available [facility] ([facility]) [address] [facility], [place], [address], 05/07/2022 08:24:32 05/06/20 22 05/07/2022 CBC WITH DIFFE RENTI AL/PL ATELE T neutrophils (absolute) 6.0 x10e3 /uL 1.4-7. 0 Not Available [facility] ([facility]) [address] [facility], [place], [address], 05/07/2022 08:24:32 05/06/20 22 05/07/2022 CBC WITH DIFFE RENTI AL/PL ATELE T lymphs (absolute) 2.6 x10e3 /uL 0.7-3. 1 Not Available [facility] ([facility]) [address] [facility], [place], [address], 05/07/2022 08:24:32 05/06/20 22 05/07/2022 CBC WITH DIFFE RENTI AL/PL ATELE T monocytes(ab solute) 1.1 x10e3 /uL 0.1-0. 9 above high normal Not Available [facility] ([facility]) [address] [facility], [place], [address], 05/07/2022 08:24:32 05/06/20 22 05/07/2022 CBC WITH DIFFE RENTI AL/PL ATELE T eos (absolute) 0.3 x10e3 /uL 0.0-0. 4 Not Available [facility] ([facility]) [address] [place], [address], 05/07/2022 08:24:32 05/06/20 22 05/07/2022 CBC WITH DIFFE RENTI AL/PL ATELE T baso (absolute) 0.1 x10e3 /uL 0.0-0. 2 Not Available [facility] ([facility]) [address] [facility], [place], [address], 05/07/2022 08:24:32 05/06/20 22 05/07/2022 CBC WITH DIFFE RENTI AL/PL ATELE T immature granulocytes 1 % not estab. Not Available [facility] ([facility]) [address] [facility], [place], [address], 05/07/2022 08:24:32 05/06/20 22 05/07/2022 CBC WITH DIFFE RENTI AL/PL ATELE T immature grans (abs) 0.1 x10e3 /uL 0.0-0. 1 Not Available [facility] ([facility]) [address] [facility], [place], [address], 05/07/2022 08:24:32 05/06/20 22 05/07/2022 CBC WITH DIFFE RENTI AL/PL ATELE T NRBC TELECOMMUNICATOR Not Available [facility] ([facility]) [address] [facility], [place], [address], 05/07/2022 08:24:32 05/06/20 22 05/07/2022 CBC WITH DIFFE RENTI AL/PL ATELE T hematology comments: TELECOMMUNICATOR Not Available [facility] ([facility]) [address] [facility], [place], [address], 05/07/2022 08:24:32 05/06/20 22 05/07/2022 COMP. METAB OLIC PANEL (14) glucose 77 mg/dL 65-99 Not Available [facility] ([facility]) [address] [facility] [place] [place], [address], 05/07/2022 08:24:33 05/06/20 22 05/07/2022 COMP. METAB OLIC PANEL (14) BUN 15 mg/dL 6-20 Not Available [facility] ([facility]) [address] [place], [address], 05/07/2022 08:24:33 05/06/20 22 05/07/2022 COMP. METAB OLIC PANEL (14) creatinine 0.67 mg/dL 0.57-1 .00 Not Available [facility] ([facility]) [address] [place], [address], 05/07/2022 08:24:33 05/06/20 22 05/07/2022 COMP. METAB OLIC PANEL (14) eGFR 126 mL/mi n/1.7 3 >59 Not Available [facility] ([facility]) [address] [facility] [place], [address], 05/07/2022 08:24:33 05/06/20 22 05/07/2022 COMP. METAB OLIC PANEL (14) BUN/creatini ne ratio 22 9-23 Not Available [facility] ([facility]) [address] [facility] [place] [place], [address], 05/07/2022 08:24:33 05/06/20 22 05/07/2022 COMP. METAB OLIC PANEL (14) sodium 141 mmol/ L 134-14 4 Not Available [facility] ([facility]) [address] [facility] [place] [place], [address], 05/07/2022 08:24:33 05/06/20 22 05/07/2022 COMP. METAB OLIC PANEL (14) potassium 4.4 mmol/ L 3.5-5. 2 Not Available [facility] ([facility]) [address] [facility] [place] [place], [address], 05/07/2022 08:24:33 05/06/20 22 05/07/2022 COMP. METAB OLIC PANEL (14) chloride 102 mmol/ L 96-106 Not Available [facility] ([facility]) [address] [facility] [place] [place], [address], 05/07/2022 08:24:33 05/06/20 22 05/07/2022 COMP. METAB OLIC PANEL (14) carbon dioxide, total 25 mmol/ L 20-29 Not Available [facility] ([facility]) [address] [facility], [place], [address], 05/07/2022 08:24:33 05/06/20 22 05/07/2022 COMP. METAB OLIC PANEL (14) calcium 9.4 mg/dL 8.7-10 .2 Not Available [facility] ([facility]) [address] [facility], [place], [address], 05/07/2022 08:24:33 05/06/20 22 05/07/2022 COMP. METAB OLIC PANEL (14) protein, total 7.5 g/dL 6.0-8. 5 Not Available [facility] ([facility]) [address] [facility], [place], [address], 05/07/2022 08:24:33 05/06/20 22 05/07/2022 COMP. METAB OLIC PANEL (14) albumin 4.8 g/dL 3.9-5. 0 Not Available [facility] ([facility]) [address] [facility], [place], [address], 05/07/2022 08:24:33 05/06/20 22 05/07/2022 COMP. METAB OLIC PANEL (14) globulin, total 2.7 g/dL 1.5-4. 5 Not Available [facility] ([facility]) [address] [facility], [place], [address], 05/07/2022 08:24:33 05/06/20 22 05/07/2022 COMP. METAB OLIC PANEL (14) A/G ratio 1.8 1.2-2. 2 Not Available [facility] ([facility]) [address] [facility], [place], [address], 05/07/2022 08:24:33 05/06/20 22 05/07/2022 COMP. METAB OLIC PANEL (14) bilirubin, total 0.3 mg/dL 0.0-1. 2 Not Available [facility] ([facility]) [address] [facility] [place] [place], [address], 05/07/2022 08:24:33 05/06/20 22 05/07/2022 COMP. METAB OLIC PANEL (14) alkaline phosphatase 99 IU/L 44-121 Not Available [facility] ([facility]) [address] [facility] [place] [place], [address], 05/07/2022 08:24:33 05/06/20 22 05/07/2022 COMP. METAB OLIC PANEL (14) AST (SGOT) 16 IU/L 0-40 Not Available [facility] ([facility]) [address] [facility], [place], [address], 05/07/2022 08:24:33 05/06/20 22 05/07/2022 COMP. METAB OLIC PANEL (14) ALT (SGPT) 14 IU/L 0-32 Not Available [facility] ([facility]) [address] [facility] [place] [place], [address], 05/07/2022 08:24:33 05/06/20 22 05/07/2022 BILIR UBIN, TOTAL /DIRE CT, SERUM bilirubin, direct 0.11 mg/dL 0.00-0 .40 Not Available [facility] ([facility]) [address] [place], [address], 05/07/2022 08:24:34 05/06/20 22 05/07/2022 BILIR UBIN, TOTAL /DIRE CT, SERUM bilirubin, indirect 0.19 mg/dL 0.10-0 .80 Not Available [facility] ([facility]) [address] [place], [address], 05/07/2022 08:24:34 05/06/20 22 05/07/2022 GGT GGT 14 IU/L 0-60 Not Available [facility] ([facility]) [address] [facility], [place], [address], 05/07/2022 08:24:34 Result Notes None recorded. Problems Name Problem SNOMED Code Status Onset Date Resolution Date Notes Provider Name and Address Organization Details Recorded Time Anxiety 74534806 Active 2018 SJ GROSSMAN Attn: Jorge fischer,[address] [place], [address], [facility] 9 09:53:48 Onychomy cosis of toenails 255441482 Active 2021 SJ GROSSMAN Attn: Jorge amado,[address] [place], [place], [address] [place] [address] 2, [facility] 2 13:25:10 Infectio n of tooth 174083420 Active 2021 SJ GROSSMAN Attn: Jorge amado,[address] [place], [place], [address] [place] [address] 2, [facility] 2 13:25:10 Scleral icterus 871075713 Active 2021 SJ GROSSMAN Attn: Jorge amado,[address] [place], [address], [facility] 2 13:25:11 Vaginal discharg e 470720346 Completed 06/12/2019 SJ GROSSMAN Attn: Jorge amado,[address] [place], [address], [facility] 9 09:53:34 Onychomy cosis 741655108 Active 2012 De great toenails IVET Vyas Attn: Jorge amado,[address] [place], [address], [facility] 6 17:15:07 Cyst of Bartholi n's gland duct 40337198 Active IVET Vyas Attn: Jorge amado,[address] [place], [address], [facility] 6 17:15:07 Candidia sis of vagina 43699062 Completed 06/12/2019 SJ GROSSMAN Attn: Jorge fischer,[address] [facility], [place], [address], [facility] 9 09:53:37 Acne 62972746 Completed 06/12/2019 SJ GROSSMAN Attn: Jorge fischer,[address] [facility], [place], [address], [facility] 9 09:53:41 Problem Notes None recorded. Procedures Surgical History Date Name Laterality Status Provider Name and Address Organization Details Recorded Time 05/30/2021 Date of Last Pap Smear completed Siena Brar MA [facility] 07/01/2022 11:18:38 Imaging Results None recorded. Procedure Notes None recorded. Medical Equipment None Reported. Allergies No known drug allergies Medications Name Sig Start Date Stop Date Status Note LastModified by Organization Details LastModified Time amoxicillin 500 mg capsule Take 1 capsule every 8 hours by oral route for 7 days. 07/01 completed Not Available Not Available Not Available doxycycline hyclate 100 mg capsule TAKE 1 CAPSULE BY MOUTH TWICE DAILY FOR 7 DAYS 12/31 completed Not Available Not Available Not Available cetirizine 10 mg tablet TAKE 1 TABLET BY MOUTH ONCE DAILY active Not Available Not Available No t Available fluconazole 150 mg tablet TAKE 1 TABLET BY MOUTH NOW AND 1 TABLET BY MOUTH IN 48 HOURS IF SYMPTOMS PERSIST 12/31 completed Not Available Not Available Not Available penicillin V potassium 500 mg tablet TAKE 1 TABLET BY MOUTH EVERY 12 HOURS FOR 4 DAYS 02/03 completed Not Available Not Available Not Available metronidazo le 500 mg tablet TAKE ALL 4 TABLETS BY MOUTH WITH FOOD 02/03 completed Not Available Not Available Not Available amoxicillin 875 mg tablet TAKE 1 TABLET BY MOUTH EVERY 12 HOURS FOR 10 DAYS 02/03 completed Not Available Not Available Not Available ibuprofen 600 mg tablet TAKE 1 TABLET BY MOUTH THREE TIMES DAILY NEEDED FOR PAIN 05/06 completed Not Available Not Available Not Available hydrocortis one 2.5 % topical ointment 06/09 completed Not Available Not Available Not Available fluticasone propionate 50 mcg/actuati on nasal spray,suspe nsion USE 2 SPRAY(S) IN EACH NOSTRIL ONCE DAILY FOR 14 DAYS active Not Available Not Available No t Available clotrimazol e 1 % topical cream apply to skin on rt cheek 2 times daily for 5-7 days 06/09 completed Not Available Not Available Not Available amoxicillin 875 mg-potassiu m clavulanate 125 mg tablet 06/09 completed Not Available Not Available Not Available escitalopra m 10 mg tablet Take 1 tablet every day by oral route for 30 days. 05/06 completed Not Available Not Available Not Available Tri-Sprinte c (28) 0.18 mg(7)/0.215 mg(7)/0.25 mg(7)-0.035 mg tablet 05/06 completed Not Available Not Available Not Available Fluarix Quad (PF) 60 mcg (15 mcg x 4)/0.5 mL IM syringe 05/06 completed Not Available Not Available Not Available Vitals Date Recorded Body height Body mass index (BMI) Body weight Heart rate Systolic blood pressure Diastolic blood pressure Provider Name and Address Organization Details Last Updated DateTime 2 162.56 cm 27.9 kg/m2 49839.0 6 g 72 /min 108 mm[Hg] 64 mm[Hg] Siena Brar [place] [facility] 2 11:43:13 Date Recorded Body height Provider Name an d Address Organization Details Last Updated DateTime 07/01/2022 162.56 cm Siena Brar [place] [facility] 2021 11:17:53 Date Recorded Body height Body mass index (BMI) Body weight Heart rate Oxygen saturation Oxygen saturation in Arterial blood by Pulse oximetry Systolic blood pressure Diastolic blood pressure Provider Name and Address Organization Details Last Updated DateTime 3 162.56 cm 28.7 kg/m2 47721.9 3 g 82 /min 99 % 99 % 110 mm[Hg] 80 mm[Hg] Siena Brar [place] [facility] 3 09:38:53 Date Recorded Body temperature Provider Name a nd Address Organization Details Last Updated DateTime 12/31/2022 97.8 [degF] Phill GROSSMAN Attn: Accounting,[address] [place], [address], [facility] 12/31/2022 10:02:21 Date Recorded Body height Body mass index (BMI) Body weight Heart rate Oxygen saturation Oxygen saturation in Arterial blood by Pulse oximetry Systolic blood pressure Diastolic blood pressure Provider Name and Address Organization Details Last Updated DateTime 3 162.56 cm 31.8 kg/m2 31986.5 9 g 80 /min 97 % 97 % 108 mm[Hg] 70 mm[Hg] Siena Brar MA [facility] 3 11:55:59 Date Recorded Body height Body mass index (BMI) Body weight Heart rate Oxygen saturation Oxygen saturation in Arterial blood by Pulse oximetry Systolic blood pressure Diastolic blood pressure Provider Name and Address Organization Details Last Updated DateTime 3 162.56 cm 31.8 kg/m2 11454.5 9 g 80 /min 98 % 98 % 122 mm[Hg] 60 mm[Hg] Siena Brar MA [facility] 3 15:05:16 Date Recorded Body height Heart rate Body temperature Body mass index (BMI) Body weight Systolic blood pressure Diastolic blood pressure Provider Name and Address Organization Details Last Updated DateTime 4 162.56 cm 70 /min 98.4 [degF] 32.3 kg/m2 32736.4 4 g 94 mm[Hg] 56 mm[Hg] Carline Tilley MA [facility] 4 14:28:28 Social History Question Answer Notes LastModified by Organizat ion Details LastModified Time Tobacco Smoking Status Never Smoker Imelda Irene MA null, [facility] 08/16/2014 17:33:18 Animal Exposure? No Informat ion not available 08/16/2014 Do You Wear A Helmet When Biking? No Information not available 08/16/2014 Are You Blind Or Do You Have Difficulty Seeing? No Information not available 10/18/2023 Is Blood Transfusion Acceptable In An Emergency? Yes Information not available 02/21/2016 What Is Your Level Of Caffeine Consumption? Occasional Sodas Information not available 08/16/2014 How Much Tobacco Do You Chew? None [email or web address] Information not available 02/21/2016 What Type Of Privacy Director Do You Use? Daycare/presch ool Information not available 08/16/2014 In The 14 Days Before Symptom Onset, Have You Had Close Contact With A Laboratory-confi rmed COVID-19 While That Case Was Ill? No Information not available 05/06/2022 In The 14 Days Before Symptom Onset, Have You Had Close Contact With A Person Who Is Under Investigation For COVID-19 While That Person Was Ill? No Information not available 05/06/2022 Have You Been To An Area Known To Be High Risk For COVID-19? No Information not available 05/06/2022 Are You Deaf Or Do You Have Serious Difficulty Hearing? No Information not available 10/18/2023 What Type Of Diet Are You Following? REGULAR Information not available 08/16/2014 Which Illicit Or Recreational Drugs Have You Used? None [email or web address] Information not available 02/21/2016 Education 11 [email or web address] Information no t available 02/21/2016 Have There Been Any Changes To Your Family Or Social Situation? No Information not available 08/16/2014 What Is The Fluoride Status Of Your Home? Fluoridated Information not available 08/16/2014 Are There Any Guns Present In Your Home? No Information not available 08/16/2014 Do You Use Insect Repellent Routinely? Yes Sometimes Information not available 08/16/2014 Live Alone Or With Others? With Others [email or web address] Information not available 02/21/2016 Car Seat Type Or Seat Belt? Seat Belt Information not available 08/16/2014 Parent Involvement? Both Parents Involved Information not available 08/16/2014 Riding In Car Front Seat? Yes Sometimes Information not available 08/16/2014 What Was The Date Of Your Most Recent Tobacco Screening? 02/03/2023 Information not available 02/03/2023 How Many Children Do You Have? 0 Information not available 02/21/2016 What Is Your Parents' Marital Status? Information not available 08/16/2014 Performs Monthly Self-breast Exam? No [email or web address] Information not available 02/21/2016 Do You Have Any Pets? No Information not available 10/18/2023 Pool Exposure No Information not available 08/16/2014 Do You Use Protection During Sex? No [email or web address] Information not available 02/21/2016 What Is Your Relationship Status? Single [email or web address] Information not available 02/21/2016 Seat Belts Used Routinely Yes [email or web address] Information not available 02/21/2016 Are You Sexually Active? No [email or web address] Information not available 02/21/2016 Do You Have Any Siblings? 2 Sisters Information not available 08/16/2014 Do You Have Smoke And Carbon Monoxide Detectors In Your Home? Yes Information not available 08/16/2014 Are You Passively Exposed To Smoke? No Information not available 08/16/2014 General Stress Level Medium [email or web address] Information not available 02/21/2016 Do You Use Sunscreen Routinely? Yes Information not available 08/16/2014 Has Tobacco Cessation Counseling Been Provided? Yes Information not available 05/06/2022 On What Date Was Tobacco Cessation Counseling Provided? 02/03/2023 Information not available 02/03/2023 Year In School 12 [email or web address] Informati on not available 05/19/2016 Sex: Female Functional Status Question Answer Note LastModified by Organizat ion Details LastModified Time Do you use any illicit or recreational drugs? No Information not available 10/18/2023 Do you or have you ever used any other forms of tobacco or nicotine? No Information not available 05/06/2022 What is your level of alcohol consumption? None [email or web address] Information not available 02/21/2016 Are you currently employed? No Information not available 02/21/2016 What is your exercise level? Moderate Information not available 08/16/2014 Mental Status Question Answer Note LastModified by Organization D etails LastModified Time Are you or have you been involved with bullying? No Information not available 08/16/2014 Family History Relationship Description Onset Age of this Age Resolved Age Notes LastModified by Organization Details LastModified Time Father No current problems or disability Not available 05/06 11:40:35 Mother No current problems or disability Not available 05/06 11:40:35 Medical History Condition Response Coronary Artery Disease N Other N Atrial Fibrillation N High Blood Pressure N Blood Diseases N Ear or Hearing Problems N Thyroid Problems N Kidney or Bladder Problems N Depression N COPD N Blood Clots N GI Problems N Developmental or Behavioral Disorders N Skin Problems N Premature N Anemia N Constipation N Heart Attack (NC) N Anxiety Disorder N Diabetes N Muscle, Joint, or Bone Problems N Bedwetting N Vision or Eye Problems N Heart Problems/Murmur N Seizures/Epilepsy N Head Injury/Concussion N Acid Reflux (GERD) N Cancer N Stroke N Asthma N Allergies N ADHD N Bladder or Kidney Problems N High Cholesterol N Hepatitis N Liver Disease N Headaches N Chicken Pox N Heart Failure N Autism Spectrum Disorder (ASD) N Osteoporosis N Gynecological History Statement/Question Response Flow Moderate Date of LMP 07/25/2023 On BCP's at Conception? N STIs/STDs N HPV Vaccine Y Age at Menarche 9 Current Control Method None Age at First Child 17 Frequency of Cycle (Q days) 24 Sexually Active? N Menses Monthly Y Date of Last Pap Smear 05/30/2021 Sexual Problems? Y LMP Approximate Desired Control Method None Obstetrics History GPAL:G 1 P 1 0 0 1 Type Value Multiple Births 0 Full Term 1 Induced 0 Spontaneous 0 Premature 0 Living 1 Ectopics 0 Total 1 Immunizations Vaccine Type Date Status Note Provider Yuan sanchez and Address Organization Details Recorded Time Tdap 3 completed SJ GROSSMAN Attn: Accounting[address] [place], [address], [facility] 02/10/2023 10:03:21 Influenza, live, quadrivalent, intranasal 5 completed Not Available [facility] 09/16/2019 02:31:46 meningococcal MCV4P 5 completed [facility] 09/16/2019 02:39:16 Past Encounters Encounter ID Performer Location Encounter Start Date Encounter Closed Date Diagnosis/Indication Diagnosis SNOMED-CT Code Diagnosis ICD10 Code Diagnosis Note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
[2025-01-18 09:23] LABS: BEDSIDEPREGUCG Negative (Negative)
--- NOTE | 2025-01-18 09:44 | ED_ITS ---
HPI - Female Genitourinary General Chief complaint: Vaginal Bleeding Stated complaint: uncontrolled vagina bleeding Time Seen by Provider: 01/18/25 09:06 Source: patient Mode of arrival: ambulatory Limitations: no limitations History of Present Illness HPI Narrative: Patient is a 24 y/o female who presents to the ED with c/o vaginal bleeding. Patient reports she started her normal menstrual cycle on 12/17 and has been persistently bleeding since then. She does have history of irregular and heavy cycles. States at times the bleeding is heavy and she will go through a pad an hour. Reports intermittent lower abdominal cramping. Reports occasional lightheadedness, weakness. Denies nausea, vomiting, fevers, dysuria, hematuria. Patient does not currently have an OBGYN. She went to an urgent care today and was referred to the ED for further evaluation. Related Data Allergies Allergy/AdvReac Type Severity Reaction Status Date / Time No Known Allergies Allergy Verified 01/18/25 09:17 Review of Systems 2 Review of Systems: All systems reviewed & are unremarkable except as noted in HPI. All systems reviewed & are unremarkable except as noted in HPI and below PMFSH Past Medical History Medical History UTI (urinary tract infection) Pre-eclampsia Left otitis media Surgical History Surgical History Hx of tubal ligation Social History Social History Smoking status: Never smoker Alcohol intake: never Substance use: never Gender identity (if verbalized by the patient): Female Exam 2 Narrative: GENERAL: Well appearing, obese with BMI of 32.0, non-toxic, in no acute distress. HEAD: Normocephalic, atraumatic. RESPIRATORY: Airway patent, respirations nonlabored. Clear to auscultation bilaterally, no rales, rhonchi, wheezing. CARDIOVASCULAR: Regular rate and rhythm ABDOMINAL: Soft, no appreciable tenderness, nondistended. Normoactive BS. PELVIC: Normal external genitalia. Very mild dark red vaginal blood in vault. Cervix appears unremarkable. No significant CMT. MUSCULOSKELETAL: Moves all extremities. No gross deformities. SKIN: Warm, dry, normal color. NEURO: A&O X3. Speech clear. Steady gait. No ataxic movements. PSYCHIATRIC: Appropriate mood and affect. Normal interaction. Course Vital Signs Vital signs: Vital Signs Temperature 97.2 F L 01/18/25 09:09 Pulse Rate 65 01/18/25 09:09 Respiratory Rate 18 01/18/25 09:09 Blood Pressure 128/83 01/18/25 09:09 Pulse Oximetry 99 01/18/25 09:09 Oxygen Delivery Room Air 01/18/25 09:09 Temperature 97.2 F L 01/18/25 09:09 Pulse Rate 61 01/18/25 12:19 Respiratory Rate 14 01/18/25 12:19 Blood Pressure 120/75 01/18/25 12:19 Pulse Oximetry 99 01/18/25 12:19 Oxygen Delivery Room Air 01/18/25 09:09 MDM - Female Genitourinary MDM Narrative Medical decision making narrative: Patient presents to ED with 1 month history of vaginal bleeding. History of irregular/heavy cycles. Does not currently have an OBGYN. Vital signs are stable upon arrival. Patient in no acute distress. No abdominal pain or tenderness on exam at this time. is negative. UA with small amount of blood, otherwise clear. Laboratory studies are reassuring, hemoglobin 14.5. Pelvic exam unremarkable. No significant bleeding, no evidence of hemorrhage or pooling of fluid. Discussed case with Dr. Friedman obgytrinity clerical production worker, advised disease start patient on Loestrin 30 mcg control pill, follow-up in office. Patient in agreement with plan. Okay with starting control pill. Advised to monitor bleeding. Given return precautions. Discharged in stable condition. Medical Records Attestation: I reviewed the patient's medical records. Lab Data Attestation: I reviewed the patient's lab results. 01/18/25 09:57 Labs: Lab Results 01/18/25 01/18/25 01/18/25 Range/Units 09:22 09:57 09:58 WBC 10.7 H (4.5-10.0) K/mm3 RBC 4.98 (4.2-5.4) M/mm3 Hgb 14.5 (12.0-15.0) g/dL Hct 47.0 (37.0-47.0) % MCV 94.4 (80-100) fl MCH 29.1 (26-34) pg MCHC 30.9 L (32-36) g/dl RDW 13.9 (11.5-14.5) % Plt Count 250 (150-375) k/mm3 MPV 9.8 (7.4-10.4) fl Immature Gran % (Auto) 0.7 H (0-0.5) % Neut % (Auto) 59.4 (45.5-73.1) % Lymph % (Auto) 28.8 (18.3-44.2) % [place] % (Auto) 8.4 (2.6-8.5) % Eos % (Auto) 2.2 (0-4.4) % Baso % (Auto) 0.5 (0.2-1.2) % Lymph # (Auto) 3.09 (0.9-3.2) K/mm3 [place] # (Auto) 0.9 H (0.1-0.6) K/mm3 Eos # (Auto) 0.2 (0-0.3) K/mm3 Baso # (Auto) 0.1 (0.0-0.1) K/mm3 Abs Immat Gran (auto) 0.08 H (0.00-0.031) K/mm3 Absolute Neuts (auto) 6.4 (1.3-6.7) K/mm3 Absolute Nucleated RBC 0.000 (0.0-0.012) K/mm3 Nucleated RBC % 0.0 (0.0-0.2) % PT 14.0 (11.1-14.7) Seconds INR 1.0 APTT 27.5 (22.3-36.8) Seconds Urine Color Yellow (Yellow) Urine Appearance Clear (Clear) Urine pH 7.0 (5.0-9.0) Ur Specific [place] 1.017 (1.001-1.035) Urine Protein Negative (Negative) mg/dL Urine Glucose (UA) Negative (Negative) mg/dL Urine Ketones Negative (Negative) mg/dL Ur Blood (Man) 3+ H (Negative) Urine Nitrate Negative (Negative) Urine Bilirubin Negative (Negative) Urine Urobilinogen 0.2 (<2.0) mg/dL Leukocyte Esterase Rfl Negative (Negative) JESSY/UL Urine RBC 11-20 H (0-2) /hpf Urine WBC 0-5 (0-3) /hpf Ur Squamous Epith Cells None seen (Few) /hpf Urine Bacteria None seen /hpf Urine Casts 0-2 POC Urine HCG, Qual Negative (Negative) Discharge Plan Discharge Clinical Impression: Dysfunctional uterine bleeding Patient Disposition: Home Condition: Stable Instructions: Antibiotic Form, Abnormal (Dysfunctional) Uterine Bleeding (ED), Dysmenorrhea (ED) Additional Instructions: Take oral control as prescribed. Follow-up with OBGYN for further evaluation. Call office to make appointment. Continue Tylenol and ibuprofen as needed for pain. Continue to monitor bleeding. Return to the ED if you experience worsening or severe bleeding, unable to keep down food or drink, severe pain, feeling very dizzy or lightheaded, passing out, or any other symptoms of concern. Patient Language: Martiniquais Prescriptions: New norethindrone ac-eth estradiol [Loestrin 1.5/30 (21)] 1.5-30 mg-mcg tablet 1 tablet PO DAILY Qty: 63 0RF Follow-up/Referrals: Munir Friedman MD [Physician] - (OBGYNAmrit Tate,SJ Lynn [Primary Care Provider] - Time of Disposition: 12:10
[2025-01-18 10:06] LABS: Basophils Absolute Auto 0.1 K/mm3 (0.0-0.1); Basophils Percent Auto 0.5 % (0.2-1.2); Eosinophils Absolute Auto 0.2 K/mm3 (0-0.3); Eosinophils Percent Auto 2.2 % (0-4.4); Hemoglobin 14.5 g/dL (12.0-15.0); Immature Granulocyte Absolute 0.08 K/mm3 (0.00-0.031); Immature Granulocyte Percent A 0.7 % (0-0.5); Lymphocytes Absolute Auto 3.09 K/mm3 (0.9-3.2); Lymphocytes Percent Auto 28.8 % (18.3-44.2); Mean Corpuscular HGB Conc 30.9 g/dl (32-36); Mean Corpuscular Hemoglobin 29.1 pg (26-34); Mean Corpuscular Volume 94.4 fl (80-100); Mean Platelet Volume 9.8 fl (7.4-10.4); Monocytes Absolute Auto 0.9 K/mm3 (0.1-0.6); Monocytes Percent Auto 8.4 % (2.6-8.5); Neutrophils Absolute Auto 6.4 K/mm3 (1.3-6.7); Neutrophils Percent Auto 59.4 % (45.5-73.1); Platelet Count Result 250 k/mm3 (150-375); Red Blood Count 4.98 M/mm3 (4.2-5.4); Red Cell Distribution Width 13.9 % (11.5-14.5); White Blood Count 10.7 K/mm3 (4.5-10.0)
[2025-01-18 10:16] LABS: Add Urine Microscopic? YES; Appearance Urine Clear (Clear); Bacteria Urine None Seen /hpf; Bilirubin Urine Negative (Negative); Blood Urine 3+ (Negative); Color Urine Yellow (Yellow); Glucose Urine UA Negative (Negative); Ketones Urine Negative (Negative); Leukocyte Esterase Ur Negative LEU/UL (Negative); Nitrate Urine Negative (Negative); Non Pathogenic Casts 0-2; Protein Urine Negative (Negative); Specific Grav Ur 1.017 (1.001-1.035); Squamous Epithelial Cell Urine None Seen /hpf (Few); Urobilinogen Urine 0.2 mg/dL (<2.0); WBC Urine 0-5 /hpf (0-3)
[2025-01-18 10:18] LABS: Partial Thromboplastin Time 27.5 Seconds (22.3-36.8)
[2025-01-18 12:19] VITALS: BP 120/75; PULSE 61; RESP 14; O2SAT 99
== END 2025-01-18 12:19 | disposition home or self-care (01) ==
PROVIDERS: Emergency Provider Physician Assistant; PCP Physician Assistant
DX: N93.8 Other specified abnormal uterine and vaginal bleeding (principal); Z87.440 Personal history of urinary (tract) infections
CPT/HCPCS: 36415; 81001; 81025; 85025; 85610; 85730; 99284